=== PATIENT | male | born 1955 | race African-American/Black ===

== ENCOUNTER 2016-09-15 10:05 | Emergency (ER) | payer OTHER ==
[~2016-09-15] VITALS: Ht 162.6 cm; Wt 81.8 kg
[~2016-09-15 10:05] MED LIST: AMLO-511 PO; ASPI81 PO; ATOR20TA86 PO; BRIM15DR2 OD; CARI350 PO; CITA20TA9 PO; FOLI0.4T2 PO; HYDR25TA PO; ISOS10TA16 PO; LISI-662 PO; LORA2TAB2 PO; MELO-273 PO; METF500T4 PO; MULT-71 PO; PENT100C9 PO; SIMV-261 PO; TAMS0.4C32 PO; TRAVZOS OD
[2016-09-15] MEDS ORDERED: ALBUTEROL SULFATE 5 MG/ML 20 ML NEB SOLN [BULK] NEB ONE (10:15)
[2016-09-15] MEDS ORDERED: IPRATROPIUM BROMIDE 0.5 MG/2.5 ML NEB SOLUTION NEB ONE (10:15)
[2016-09-15 10:58] LABS: BASOPHILS # (AUTO) 0.02 K/uL (0.00-0.20); BASOPHILS % (AUTO) 0.4 % (0.0-2.0); EOSINOPHILS # (AUTO) 0.02 K/uL (0.00-0.70); EOSINOPHILS % (AUTO) 0.45 % (1.0-6.0); LYMPHOCYTES # (AUTO) 0.9 K/uL (1.0-4.8); LYMPHOCYTES % (AUTO) 20.3 % (22.0-44.0); MEAN CORPUSCULAR HEMOGLOBIN 24.2 pg (26.0-34.0); MEAN CORPUSCULAR VOLUME 78 fL (80-100); MONOCYTES # (AUTO) 0.8 K/uL (0.1-1.0); MONOCYTES % (AUTO) 17.9 % (2.0-9.0); NEUTROPHILS # (AUTO) 2.7 K/uL (1.8-7.7); PLATELET COUNT (AUTO) 235 K/uL (150-450); RED BLOOD CELL COUNT(AUTO) 5.77 MIL/uL (4.50-5.90); RED CELL DISTRIBUTION WIDTH 17.6 % (11.5-14.5); WHITE BLOOD COUNT (AUTO) 4.4 K/uL (4.5-11.0)
[2016-09-15 10:59] LABS: ANION GAP 6 mmol/L (8-16); CARBON DIOXIDE 34 mmol/L (22-29); CHLORIDE 90 mmol/L (98-107); GLOMERULAR FILTR. RATE CALC > 60 mL/min (>60); POTASSIUM 3.8 mmol/L (3.5-5.1); SODIUM SERUM 130 mmol/L (136-145); UREA NITROGEN, BLOOD 6 mg/dL (7-18)
[2016-09-15 11:06] LABS: ALANINE AMINOTRANSFERASE 63 U/L (12-78); ASPARTATE AMINOTRANSFERASE 48 U/L (15-37); BILIRUBIN,TOTAL 0.3 mg/dL (0.1-1.0); TOTAL PROTEIN, SERUM 8.2 g/dL (6.4-8.2)
[2016-09-15] MEDS ORDERED: SODIUM CHLORIDE 0.9% 1,000 ML IV ONE (13:15)
[2016-09-15] MEDS ORDERED: MethylPREDNISolone SOD SUCC 125 MG/2 ML VIAL IVP ONE (13:15)
[2016-09-15 15:10] VITALS: BP 141/75
== END 2016-09-15 15:18 | disposition home or self-care (01) ==
LOC: EMS 10:12
DX: J44.9 Chronic obstructive pulmonary disease, unspecified (principal); F41.9 Anxiety disorder, unspecified; E78.00 Pure hypercholesterolemia, unspecified; E11.9 Type 2 diabetes mellitus without complications; I10 Essential (primary) hypertension; F17.210 Nicotine dependence, cigarettes, uncomplicated; Z79.82 Long term (current) use of aspirin
CPT/HCPCS: 36415; 71020; 80053; 85025; 94640; 96361; 96374; 99285; J2930; J7030; J7611

== ENCOUNTER 2017-04-23 08:49 | Inpatient (IN) | payer OTHER ==
[~2017-04-23] VITALS: Ht 175.3 cm; Wt 79.5 kg
[~2017-04-23 08:49] MED LIST changes: +MELO-107 PO; -MELO-273 PO; -MULT-71 PO; +MULT1TAB70 PO
[2017-04-23] MEDS ORDERED: IPRATROPIUM BROMIDE 0.5 MG/2.5 ML NEB SOLUTION NEB ONE ×2 (09:00)
[2017-04-23] MEDS ORDERED: ALBUTEROL SULFATE 5 MG/ML 20 ML NEB SOLN [BULK] NEB ONE ×2 (09:00)
[2017-04-23] MEDS ORDERED: MethylPREDNISolone SOD SUCC 125 MG/2 ML VIAL IVP ONE (09:00)
[2017-04-23] MEDS ORDERED: LEVOFLOXACIN 750 MG/D5% WATER 150 ML IV ONE (09:00)
[2017-04-23 09:09] LABS: ABG A-A DIFF O2 425.5 mmHg (10-20.0); ABG BASE EXCESS 8.6 mmol/L (-2.0-3.0); ABG CARBOXYHEMOGLOBIN 3.7 % (0.0-1.5); ABG HCO3 29.5 mmol/L (22.0-26.0); ABG METHEMOGLOBIN 0.4 % (0.0-1.5); ABG OXYGEN CONTENT 20.4 mL/dL (15.0-23.0); ABG OXYGEN SATURATION 99.3 % (95.0-98.0); ABG OXYHEMOGLOBIN 95.2 % (94.0-100.0); ABG PCO2 80 mmHg (35-45); ABG PH 7.269 (7.35-7.450); ABG TOTAL HEMOGLOBIN 14.9 G/dL (12.0-18.0); O2 DEVICE,BLOOD GAS NON REBREATHER (ROOM AIR); PO2, ARTERIAL BG 207.7 mmHg (79.0-87.0); SITE, BLOOD GAS RT RADIAL; SOURCE, BLOOD GAS ARTERIAL; TEMPERATURE, FAHRENHEIT, BG 98.8 FAHREN (96.0-98.6)
[2017-04-23] MEDS ORDERED: 0.9% SODIUM CHLORIDE 15 ML NEB SOLUTION NEB ONE ×2 (09:16→11:22)
[2017-04-23 09:29] LABS: EOSINOPHILS % (AUTO) 0.3 % (1.0-6.0); HEMATOCRIT 46.4 % (41-53); LYMPHOCYTES # (AUTO) 0.7 K/uL (1.0-4.8); LYMPHOCYTES % (AUTO) 6.7 % (22.0-44.0); MEAN CORPUSCULAR HEMOGLOBIN 26.3 pg (26.0-34.0); MEAN CORPUSCULAR HGB CONC 32.4 G/dL (31.0-37.0); MEAN CORPUSCULAR VOLUME 81 fL (80-100); MONOCYTES # (AUTO) 1.9 K/uL (0.1-1.0); MONOCYTES % (AUTO) 19.8 % (2.0-9.0); NEUTROPHILS # (AUTO) 7.2 K/uL (1.8-7.7); NEUTROPHILS % (AUTO) 73.2 % (40.0-70.0); PLATELET COUNT (AUTO) 234 K/uL (150-450); RED BLOOD CELL COUNT(AUTO) 5.71 MIL/uL (4.50-5.90); RED CELL DISTRIBUTION WIDTH 19.9 % (11.5-14.5)
[2017-04-23 09:59] LABS: ANION GAP 9 mmol/L (8-16); CARBON DIOXIDE 36 mmol/L (22-29); CHLORIDE 83 mmol/L (98-107); CREATININE 1.25 mg/dL (0.60-1.30); GLOMERULAR FILTR. RATE CALC > 60 mL/min (>60); GLUCOSE,RANDOM 166 mg/dL (70-110); POTASSIUM 3.6 mmol/L (3.5-5.1); SODIUM SERUM 128 mmol/L (136-145); UREA NITROGEN, BLOOD 14 mg/dL (7-18)
[2017-04-23 10:16] LABS: B-TYPE NATRIURETIC PEPTIDE 40 pg/mL (0-100)
[2017-04-23 10:24] LABS: ALANINE AMINOTRANSFERASE 22 U/L (12-78); ALBUMIN 4.2 g/dL (3.4-5.0); ALKALINE PHOSPHATASE 57 U/L (46-116); ASPARTATE AMINOTRANSFERASE 23 U/L (15-37); BILIRUBIN,TOTAL 0.4 mg/dL (0.1-1.0); CREATINE KINASE MB 1.4 ng/mL (0-5); CREATINE KINASE, TOTAL 216 U/L (39-308); TOTAL PROTEIN, SERUM 8.4 g/dL (6.4-8.2)
[2017-04-23 10:55] LABS: APPEARANCE,URINE CLEAR (CLEAR); BILIRUBIN,URINE NEGATIVE (NEGATIVE); GLUCOSE, URINE (UA) NEGATIVE (NEGATIVE); KETONES,URINE NEGATIVE (NEGATIVE); LEUKOCYTE ESTERASE ,URINE NEGATIVE (NEGATIVE); NITRATE,URINE NEGATIVE (NEGATIVE); OCCULT BLOOD,URINE NEGATIVE (NEGATIVE); UROBILINOGEN,URINE 0.2 mg/dL (<=1.0)
[2017-04-23 10:58] LABS: PROTEIN,URINE NEGATIVE (NEGATIVE)
[2017-04-23] MEDS ORDERED: ACETAMINOPHEN 325 MG TABLET PO PRN (12:45)
[2017-04-23] MEDS ORDERED: ONDANSETRON HCL 4 MG/2 ML VIAL IVP PRN (12:45)
[2017-04-23] MEDS ORDERED: 0.9% SODIUM CHLORIDE 10 ML SYRINGE IVP PRN (12:45)
[2017-04-23 13:06] VITALS: BP 131/76
[2017-04-23] MEDS ORDERED: PNEUMOCOCCAL VACCINE POLYVALENT 0.5 ML VIAL [PPSV23] IM ONE (15:15)
[2017-04-23 15:26] VITALS: BP 108/73
[2017-04-23] MEDS: IPRATROPIUM BROMIDE 0.5 MG/2.5 ML NEB SOLUTION NEB SCH ×2 (16:11→19:00)
[2017-04-23] MEDS: ALBUTEROL SULFATE 2.5 MG/0.5 ML NEB SOLUTION NEB SCH ×2 (16:11→19:00)
[2017-04-23] MEDS: CARISOPRODOL 350 MG TABLET PO SCH ×2 (18:12→23:47)
[2017-04-23 19:40] VITALS: BP 124/80
[2017-04-23] MEDS: BRIMONIDINE TARTRATE 0.1% 5 ML OPHTHALMIC SOLUTION OD SCH (20:46)
[2017-04-23] MEDS: LORazepam 2 MG TABLET PO SCH (20:46)
[2017-04-23] MEDS: TRAVOPROST-Z 0.004% 2.5 ML OPHTHALMIC SOLUTION OD SCH (20:46)
[2017-04-23] MEDS: ISOSORBIDE DINITRATE 10 MG TABLET PO SCH (20:46)
[2017-04-23] MEDS: MethylPREDNISolone SOD SUCC 125 MG/2 ML VIAL IVP SCH ×2 (20:46→23:47)
[2017-04-23] MEDS: OXYGEN THERAPY IH SCH (20:54)
[2017-04-23] MEDS: BUDESONIDE 0.5 MG/2 ML NEB SOLUTION NEB SCH (21:00)
[2017-04-23 23:38] VITALS: BP 140/89
[2017-04-24] MEDS: IPRATROPIUM BROMIDE 0.5 MG/2.5 ML NEB SOLUTION NEB SCH ×7 (00:14→22:56)
[2017-04-24] MEDS: ALBUTEROL SULFATE 2.5 MG/0.5 ML NEB SOLUTION NEB SCH ×7 (00:14→22:56)
[2017-04-24] MEDS ORDERED: CARISOPRODOL 350 MG TABLET PO SCH (02:00)
[2017-04-24] MEDS: CefTRIAXone 1 GM/DEXTROSE 50 ML IV SCH (03:29)
[2017-04-24] MEDS: AZITHROMYCIN 500 MG/NS 250 ML IV SCH (03:29)
[2017-04-24 04:41] VITALS: BP 118/76
[2017-04-24] MEDS: CARISOPRODOL 350 MG TABLET PO SCH ×3 (05:21→17:30)
[2017-04-24] MEDS: MethylPREDNISolone SOD SUCC 125 MG/2 ML VIAL IVP SCH ×3 (05:21→17:29)
[2017-04-24] MEDS: MetFORMIN HCL 500 MG TABLET PO SCH ×2 (07:25→17:29)
[2017-04-24] MEDS: BRIMONIDINE TARTRATE 0.1% 5 ML OPHTHALMIC SOLUTION OD SCH ×3 (07:27→21:27)
[2017-04-24 07:28] VITALS: BP 139/82
[2017-04-24] MEDS: ASPIRIN 81 MG CHEWABLE TABLET PO SCH (07:29)
[2017-04-24] MEDS: LORazepam 2 MG TABLET PO SCH ×2 (07:29→21:27)
[2017-04-24] MEDS: CITALOPRAM HYDROBROMIDE 20 MG TABLET PO SCH (07:29)
[2017-04-24] MEDS: ATORVASTATIN CALCIUM 20 MG TABLET PO SCH (07:30)
[2017-04-24] MEDS: ISOSORBIDE DINITRATE 10 MG TABLET PO SCH ×2 (07:30→21:27)
[2017-04-24] MEDS: FOLIC ACID 0.4 MG TABLET PO SCH (07:30)
[2017-04-24] MEDS: TAMSULOSIN HCL 0.4 MG CAPSULE PO SCH (07:32)
[2017-04-24] MEDS: MELOXICAM 7.5 MG TABLET PO SCH (07:34)
[2017-04-24] MEDS: HYDROCHLOROTHIAZIDE 25 MG TABLET PO SCH (07:35)
[2017-04-24] MEDS: AmLODIPine BESYLATE 5 MG TABLET PO SCH (07:35)
[2017-04-24] MEDS: BUDESONIDE 0.5 MG/2 ML NEB SOLUTION NEB SCH ×2 (07:55→19:19)
[2017-04-24 08:24] LABS: INFLUENZA TYPE A POSITIVE FOR TYPE A (NEGATIVE); INFLUENZA TYPE B NEGATIVE FOR TYPE B (NEGATIVE)
[2017-04-24 08:45] LABS: EOSINOPHILS % (AUTO) 0.1 % (1.0-6.0); HEMATOCRIT 43.4 % (41-53); LYMPHOCYTES # (AUTO) 0.3 K/uL (1.0-4.8); LYMPHOCYTES % (AUTO) 4.7 % (22.0-44.0); MEAN CORPUSCULAR HEMOGLOBIN 26.6 pg (26.0-34.0); MEAN CORPUSCULAR HGB CONC 32.2 G/dL (31.0-37.0); MEAN CORPUSCULAR VOLUME 83 fL (80-100); MONOCYTES # (AUTO) 0.3 K/uL (0.1-1.0); MONOCYTES % (AUTO) 4.1 % (2.0-9.0); NEUTROPHILS # (AUTO) 6.2 K/uL (1.8-7.7); PLATELET COUNT (AUTO) 211 K/uL (150-450); RED BLOOD CELL COUNT(AUTO) 5.25 MIL/uL (4.50-5.90); RED CELL DISTRIBUTION WIDTH 19.5 % (11.5-14.5)
[2017-04-24 08:57] LABS: NEUTROPHILS % (AUTO) 91.1 % (40.0-70.0)
[2017-04-24] MEDS ORDERED: SIMVASTATIN 40 MG TABLET PO SCH (09:00)
[2017-04-24 09:01] LABS: ALANINE AMINOTRANSFERASE 21 U/L (12-78); ALBUMIN 3.4 g/dL (3.4-5.0); ALKALINE PHOSPHATASE 42 U/L (46-116); ANION GAP 6 mmol/L (8-16); ASPARTATE AMINOTRANSFERASE 17 U/L (15-37); BILIRUBIN,TOTAL 0.2 mg/dL (0.1-1.0); CALCIUM, TOTAL 8.5 mg/dL (8.8-10.5); CARBON DIOXIDE 37 mmol/L (22-29); CHLORIDE 91 mmol/L (98-107); CREATININE 1.08 mg/dL (0.60-1.30); GLOMERULAR FILTR. RATE CALC > 60 mL/min (>60); GLUCOSE,RANDOM 173 mg/dL (70-110); POTASSIUM 4.5 mmol/L (3.5-5.1); SODIUM SERUM 134 mmol/L (136-145); TOTAL PROTEIN, SERUM 7.5 g/dL (6.4-8.2); UREA NITROGEN, BLOOD 16 mg/dL (7-18)
[2017-04-24] MEDS: OXYGEN THERAPY IH SCH ×4 (11:26→21:28)
[2017-04-24 11:34] VITALS: BP 123/71
[2017-04-24] MEDS: LISINOPRIL 20 MG TABLET PO SCH (12:35)
[2017-04-24 15:13] VITALS: BP 134/70
[2017-04-24 16:38] LABS: GLUCOMETER DEV NAME(LOC) 5S 2N; GLUCOSE,POINT OF CARE 188 MG/DL (70-110)
[2017-04-24] MEDS: PENTOSAN POLYSULFATE SODIUM 100 MG PO SCH ×2 (17:29→21:27)
[2017-04-24 20:00] VITALS: BP 131/75
[2017-04-24] MEDS: TRAVOPROST-Z 0.004% 2.5 ML OPHTHALMIC SOLUTION OD SCH (21:27)
[2017-04-24 23:41] VITALS: BP 121/67
[2017-04-25] MEDS: MethylPREDNISolone SOD SUCC 125 MG/2 ML VIAL IVP SCH ×5 (00:09→23:53)
[2017-04-25] MEDS: CARISOPRODOL 350 MG TABLET PO SCH ×5 (00:10→23:53)
[2017-04-25] MEDS: CefTRIAXone 1 GM/DEXTROSE 50 ML IV SCH (01:12)
[2017-04-25] MEDS: AZITHROMYCIN 500 MG/NS 250 ML IV SCH (02:12)
[2017-04-25] MEDS: ALBUTEROL SULFATE 2.5 MG/0.5 ML NEB SOLUTION NEB SCH ×6 (03:29→23:00)
[2017-04-25] MEDS: IPRATROPIUM BROMIDE 0.5 MG/2.5 ML NEB SOLUTION NEB SCH ×5 (03:29→20:19)
[2017-04-25 04:53] VITALS: BP 131/75
[2017-04-25 07:17] VITALS: BP 150/62
[2017-04-25] MEDS: BUDESONIDE 0.5 MG/2 ML NEB SOLUTION NEB SCH ×2 (07:34→20:19)
[2017-04-25] MEDS: OXYGEN THERAPY IH SCH ×4 (09:11→20:33)
[2017-04-25] MEDS: ASPIRIN 81 MG CHEWABLE TABLET PO SCH (09:12)
[2017-04-25] MEDS: PENTOSAN POLYSULFATE SODIUM 100 MG PO SCH ×3 (09:12→20:26)
[2017-04-25] MEDS: BRIMONIDINE TARTRATE 0.1% 5 ML OPHTHALMIC SOLUTION OD SCH ×3 (09:12→20:24)
[2017-04-25] MEDS: HYDROCHLOROTHIAZIDE 25 MG TABLET PO SCH (09:13)
[2017-04-25] MEDS: CITALOPRAM HYDROBROMIDE 20 MG TABLET PO SCH (09:14)
[2017-04-25] MEDS: MetFORMIN HCL 500 MG TABLET PO SCH ×2 (09:14→17:52)
[2017-04-25] MEDS: FOLIC ACID 0.4 MG TABLET PO SCH (09:14)
[2017-04-25] MEDS: MELOXICAM 7.5 MG TABLET PO SCH (09:14)
[2017-04-25] MEDS: ISOSORBIDE DINITRATE 10 MG TABLET PO SCH ×2 (09:14→20:23)
[2017-04-25] MEDS: TAMSULOSIN HCL 0.4 MG CAPSULE PO SCH (09:14)
[2017-04-25] MEDS: LISINOPRIL 20 MG TABLET PO SCH (09:14)
[2017-04-25] MEDS: LORazepam 2 MG TABLET PO SCH ×2 (09:15→20:23)
[2017-04-25] MEDS: ATORVASTATIN CALCIUM 20 MG TABLET PO SCH (09:15)
[2017-04-25] MEDS: AmLODIPine BESYLATE 5 MG TABLET PO SCH (09:15)
[2017-04-25 11:06] VITALS: BP 142/66
[2017-04-25 15:08] VITALS: BP 149/76
[2017-04-25 19:22] LABS: GLUCOMETER DEV NAME(LOC) 5S 2N; GLUCOSE,POINT OF CARE 189 MG/DL (70-110)
[2017-04-25 19:27] VITALS: BP 143/77
[2017-04-25] MEDS: TRAVOPROST-Z 0.004% 2.5 ML OPHTHALMIC SOLUTION OD SCH (20:24)
[2017-04-26] VITALS (7 sets, daily range): BP systolic 127–153; BP diastolic 74–91
[2017-04-26] MEDS: IPRATROPIUM BROMIDE 0.5 MG/2.5 ML NEB SOLUTION NEB SCH ×7 (00:02→23:50)
[2017-04-26] MEDS: CefTRIAXone 1 GM/DEXTROSE 50 ML IV SCH (01:29)
[2017-04-26] MEDS: AZITHROMYCIN 500 MG/NS 250 ML IV SCH (02:29)
[2017-04-26] MEDS: ALBUTEROL SULFATE 2.5 MG/0.5 ML NEB SOLUTION NEB SCH ×6 (02:57→23:50)
[2017-04-26] MEDS: CARISOPRODOL 350 MG TABLET PO SCH ×4 (05:14→23:56)
[2017-04-26] MEDS: MethylPREDNISolone SOD SUCC 125 MG/2 ML VIAL IVP SCH ×2 (05:16→12:33)
[2017-04-26] MEDS: BUDESONIDE 0.5 MG/2 ML NEB SOLUTION NEB SCH ×2 (07:31→20:09)
[2017-04-26] MEDS: OXYGEN THERAPY IH SCH ×2 (07:52→20:35)
[2017-04-26] MEDS: TAMSULOSIN HCL 0.4 MG CAPSULE PO SCH (07:53)
[2017-04-26] MEDS: FOLIC ACID 0.4 MG TABLET PO SCH (07:53)
[2017-04-26] MEDS: ISOSORBIDE DINITRATE 10 MG TABLET PO SCH ×2 (07:53→20:34)
[2017-04-26] MEDS: BRIMONIDINE TARTRATE 0.1% 5 ML OPHTHALMIC SOLUTION OD SCH ×3 (07:53→20:34)
[2017-04-26] MEDS: LISINOPRIL 20 MG TABLET PO SCH (07:53)
[2017-04-26] MEDS: LORazepam 2 MG TABLET PO SCH ×2 (07:54→20:34)
[2017-04-26] MEDS: HYDROCHLOROTHIAZIDE 25 MG TABLET PO SCH (07:54)
[2017-04-26] MEDS: CITALOPRAM HYDROBROMIDE 20 MG TABLET PO SCH (07:54)
[2017-04-26] MEDS: MetFORMIN HCL 500 MG TABLET PO SCH ×2 (07:54→17:17)
[2017-04-26] MEDS: ASPIRIN 81 MG CHEWABLE TABLET PO SCH (07:54)
[2017-04-26] MEDS: ATORVASTATIN CALCIUM 20 MG TABLET PO SCH (07:54)
[2017-04-26] MEDS: MELOXICAM 7.5 MG TABLET PO SCH (07:54)
[2017-04-26] MEDS: PENTOSAN POLYSULFATE SODIUM 100 MG PO SCH ×3 (07:55→20:34)
[2017-04-26] MEDS: AmLODIPine BESYLATE 5 MG TABLET PO SCH (07:55)
[2017-04-26 08:03] LABS: EOSINOPHILS # (AUTO) 0.01 K/uL (0.00-0.70); EOSINOPHILS % (AUTO) 0.04 % (1.0-6.0); HEMATOCRIT 41.5 % (41-53); HEMOGLOBIN 12.8 g/dL (13.5-17.5); LYMPHOCYTES # (AUTO) 0.4 K/uL (1.0-4.8); LYMPHOCYTES % (AUTO) 2.8 % (22.0-44.0); MEAN CORPUSCULAR HEMOGLOBIN 26.2 pg (26.0-34.0); MEAN CORPUSCULAR HGB CONC 30.8 G/dL (31.0-37.0); MEAN CORPUSCULAR VOLUME 85 fL (80-100); MONOCYTES # (AUTO) 0.2 K/uL (0.1-1.0); MONOCYTES % (AUTO) 1.5 % (2.0-9.0); PLATELET COUNT (AUTO) 160 K/uL (150-450); RED BLOOD CELL COUNT(AUTO) 4.89 MIL/uL (4.50-5.90)
[2017-04-26 08:42] LABS: NEUTROPHILS % (AUTO) 95.6 % (40.0-70.0)
[2017-04-26 08:51] LABS: ALANINE AMINOTRANSFERASE 20 U/L (12-78); ALBUMIN 3.2 g/dL (3.4-5.0); ALKALINE PHOSPHATASE 39 U/L (46-116); ANION GAP -1 mmol/L (8-16); ASPARTATE AMINOTRANSFERASE 14 U/L (15-37); BILIRUBIN,TOTAL 0.3 mg/dL (0.1-1.0); CALCIUM, TOTAL 8.3 mg/dL (8.8-10.5); CHLORIDE 92 mmol/L (98-107); CREATININE 0.91 mg/dL (0.60-1.30); GLOMERULAR FILTR. RATE CALC > 60 mL/min (>60); GLUCOSE,RANDOM 156 mg/dL (70-110); POTASSIUM 5.1 mmol/L (3.5-5.1); SODIUM SERUM 133 mmol/L (136-145); TOTAL PROTEIN, SERUM 6.8 g/dL (6.4-8.2); UREA NITROGEN, BLOOD 18 mg/dL (7-18)
[2017-04-26 08:57] LABS: CARBON DIOXIDE 42 mmol/L (22-29)
[2017-04-26] MEDS: OSELTAMIVIR PHOSPHATE 75 MG CAPSULE PO SCH ×2 (15:23→20:34)
[2017-04-26 19:20] LABS: ABG A-A DIFF O2 30.3 mmHg (10-20.0); ABG CARBOXYHEMOGLOBIN 2.1 % (0.0-1.5); ABG HCO3 38.7 mmol/L (22.0-26.0); ABG METHEMOGLOBIN 0.4 % (0.0-1.5); ABG OXYGEN CONTENT 17.2 mL/dL (15.0-23.0); ABG OXYGEN SATURATION 93.3 % (95.0-98.0); ABG PH 7.339 (7.35-7.450); ABG TOTAL HEMOGLOBIN 13.4 G/dL (12.0-18.0); PO2, ARTERIAL BG 69.2 mmHg (79.0-87.0); SOURCE, BLOOD GAS ARTERIAL; TEMPERATURE, FAHRENHEIT, BG 98.4 FAHREN (96.0-98.6)
[2017-04-26 19:23] LABS: ABG PCO2 85 mmHg (35-45); O2 DEVICE,BLOOD GAS OXYMIZER (ROOM AIR); SITE, BLOOD GAS RT RADIAL
[2017-04-26] MEDS: TRAVOPROST-Z 0.004% 2.5 ML OPHTHALMIC SOLUTION OD SCH (20:34)
[2017-04-27] MEDS: CefTRIAXone 1 GM/DEXTROSE 50 ML IV SCH (01:53)
[2017-04-27] MEDS: AZITHROMYCIN 500 MG/NS 250 ML IV SCH (02:36)
[2017-04-27] MEDS: ALBUTEROL SULFATE 2.5 MG/0.5 ML NEB SOLUTION NEB SCH ×6 (03:00→23:16)
[2017-04-27] MEDS: IPRATROPIUM BROMIDE 0.5 MG/2.5 ML NEB SOLUTION NEB SCH ×6 (03:00→23:16)
[2017-04-27] MEDS: CARISOPRODOL 350 MG TABLET PO SCH ×4 (04:57→23:44)
[2017-04-27 04:59] VITALS: BP 153/94
[2017-04-27 07:34] LABS: ALANINE AMINOTRANSFERASE 20 U/L (12-78); ALKALINE PHOSPHATASE 41 U/L (46-116); ANION GAP 1 mmol/L (8-16); ASPARTATE AMINOTRANSFERASE 14 U/L (15-37); BILIRUBIN,TOTAL 0.3 mg/dL (0.1-1.0); CALCIUM, TOTAL 8.5 mg/dL (8.8-10.5); CHLORIDE 90 mmol/L (98-107); CREATININE 0.84 mg/dL (0.60-1.30); GLOMERULAR FILTR. RATE CALC > 60 mL/min (>60); GLUCOSE,RANDOM 97 mg/dL (70-110); POTASSIUM 4.2 mmol/L (3.5-5.1); SODIUM SERUM 133 mmol/L (136-145); TOTAL PROTEIN, SERUM 6.4 g/dL (6.4-8.2); UREA NITROGEN, BLOOD 16 mg/dL (7-18)
[2017-04-27 07:39] LABS: CARBON DIOXIDE 42 mmol/L (22-29)
[2017-04-27] MEDS: BUDESONIDE 0.5 MG/2 ML NEB SOLUTION NEB SCH ×2 (07:45→19:37)
[2017-04-27 07:48] LABS: BASOPHILS % (AUTO) 0.3 % (0.0-2.0); EOSINOPHILS % (AUTO) 0.1 % (1.0-6.0); HEMATOCRIT 39.4 % (41-53); HEMOGLOBIN 12.6 g/dL (13.5-17.5); LYMPHOCYTES # (AUTO) 1.4 K/uL (1.0-4.8); LYMPHOCYTES % (AUTO) 15.9 % (22.0-44.0); MEAN CORPUSCULAR HEMOGLOBIN 26.5 pg (26.0-34.0); MEAN CORPUSCULAR VOLUME 83 fL (80-100); MONOCYTES % (AUTO) 11.2 % (2.0-9.0); NEUTROPHILS # (AUTO) 6.3 K/uL (1.8-7.7); NEUTROPHILS % (AUTO) 72.5 % (40.0-70.0); PLATELET COUNT (AUTO) 161 K/uL (150-450); RED BLOOD CELL COUNT(AUTO) 4.74 MIL/uL (4.50-5.90)
[2017-04-27 08:02] VITALS: BP 164/95
[2017-04-27 09:04] VITALS: BP 149/82
[2017-04-27] MEDS: OSELTAMIVIR PHOSPHATE 75 MG CAPSULE PO SCH ×2 (09:10→20:13)
[2017-04-27] MEDS: TAMSULOSIN HCL 0.4 MG CAPSULE PO SCH (09:10)
[2017-04-27] MEDS: PredniSONE 20 MG TABLET PO SCH (09:10)
[2017-04-27] MEDS: ATORVASTATIN CALCIUM 20 MG TABLET PO SCH (09:11)
[2017-04-27] MEDS: LORazepam 2 MG TABLET PO SCH ×2 (09:11→20:13)
[2017-04-27] MEDS: LISINOPRIL 20 MG TABLET PO SCH (09:11)
[2017-04-27] MEDS: FOLIC ACID 0.4 MG TABLET PO SCH (09:11)
[2017-04-27] MEDS: ISOSORBIDE DINITRATE 10 MG TABLET PO SCH ×2 (09:11→20:13)
[2017-04-27] MEDS: MetFORMIN HCL 500 MG TABLET PO SCH ×2 (09:11→17:01)
[2017-04-27] MEDS: HYDROCHLOROTHIAZIDE 25 MG TABLET PO SCH (09:12)
[2017-04-27] MEDS: AmLODIPine BESYLATE 5 MG TABLET PO SCH (09:12)
[2017-04-27] MEDS: CITALOPRAM HYDROBROMIDE 20 MG TABLET PO SCH (09:12)
[2017-04-27] MEDS: ASPIRIN 81 MG CHEWABLE TABLET PO SCH (09:12)
[2017-04-27] MEDS: MELOXICAM 7.5 MG TABLET PO SCH (09:12)
[2017-04-27] MEDS: BRIMONIDINE TARTRATE 0.1% 5 ML OPHTHALMIC SOLUTION OD SCH ×3 (09:13→20:13)
[2017-04-27] MEDS: OXYGEN THERAPY IH SCH ×2 (09:22→19:36)
[2017-04-27 11:35] VITALS: BP 138/81
[2017-04-27] MEDS: PENTOSAN POLYSULFATE SODIUM 100 MG PO SCH ×3 (12:23→20:13)
[2017-04-27 15:39] VITALS: BP 129/62
[2017-04-27 19:34] VITALS: BP 159/95
[2017-04-27] MEDS: TRAVOPROST-Z 0.004% 2.5 ML OPHTHALMIC SOLUTION OD SCH (20:13)
[2017-04-27] MEDS ORDERED: SODIUM CHLORIDE 0.9% 250 ML IV ONE (23:41)
[2017-04-28 00:10] VITALS: BP 147/90
[2017-04-28] MEDS: CefTRIAXone 1 GM/DEXTROSE 50 ML IV SCH (02:12)
[2017-04-28] MEDS: IPRATROPIUM BROMIDE 0.5 MG/2.5 ML NEB SOLUTION NEB SCH ×4 (03:04→14:56)
[2017-04-28] MEDS: ALBUTEROL SULFATE 2.5 MG/0.5 ML NEB SOLUTION NEB SCH ×4 (03:04→14:56)
[2017-04-28] MEDS: AZITHROMYCIN 500 MG/NS 250 ML IV SCH (03:06)
[2017-04-28 04:55] VITALS: BP 152/92
[2017-04-28] MEDS: CARISOPRODOL 350 MG TABLET PO SCH ×3 (05:56→18:23)
[2017-04-28 07:28] VITALS: BP 144/95
[2017-04-28 07:30] LABS: BASOPHILS # (AUTO) 0.02 K/uL (0.00-0.20); BASOPHILS % (AUTO) 0.2 % (0.0-2.0); EOSINOPHILS # (AUTO) 0.03 K/uL (0.00-0.70); EOSINOPHILS % (AUTO) 0.39 % (1.0-6.0); HEMATOCRIT 42.5 % (41-53); HEMOGLOBIN 13.2 g/dL (13.5-17.5); LYMPHOCYTES % (AUTO) 29.8 % (22.0-44.0); MEAN CORPUSCULAR HGB CONC 31.1 G/dL (31.0-37.0); MEAN CORPUSCULAR VOLUME 83 fL (80-100); MONOCYTES % (AUTO) 14.6 % (2.0-9.0); NEUTROPHILS # (AUTO) 3.8 K/uL (1.8-7.7); PLATELET COUNT (AUTO) 152 K/uL (150-450); RED BLOOD CELL COUNT(AUTO) 5.09 MIL/uL (4.50-5.90); RED CELL DISTRIBUTION WIDTH 18.6 % (11.5-14.5)
[2017-04-28] MEDS: BUDESONIDE 0.5 MG/2 ML NEB SOLUTION NEB SCH (07:35)
[2017-04-28 08:00] LABS: ALANINE AMINOTRANSFERASE 24 U/L (12-78); ALBUMIN 3.2 g/dL (3.4-5.0); ALKALINE PHOSPHATASE 49 U/L (46-116); ANION GAP 3 mmol/L (8-16); ASPARTATE AMINOTRANSFERASE 16 U/L (15-37); BILIRUBIN,TOTAL 0.4 mg/dL (0.1-1.0); CALCIUM, TOTAL 8.7 mg/dL (8.8-10.5); CHLORIDE 87 mmol/L (98-107); CREATININE 0.87 mg/dL (0.60-1.30); GLOMERULAR FILTR. RATE CALC > 60 mL/min (>60); GLUCOSE,RANDOM 96 mg/dL (70-110); POTASSIUM 3.8 mmol/L (3.5-5.1); SODIUM SERUM 133 mmol/L (136-145); TOTAL PROTEIN, SERUM 6.9 g/dL (6.4-8.2); UREA NITROGEN, BLOOD 16 mg/dL (7-18)
[2017-04-28 08:10] LABS: CARBON DIOXIDE 43 mmol/L (22-29)
[2017-04-28] MEDS: MetFORMIN HCL 500 MG TABLET PO SCH ×2 (08:56→18:23)
[2017-04-28] MEDS: OXYGEN THERAPY IH SCH (08:56)
[2017-04-28] MEDS: CITALOPRAM HYDROBROMIDE 20 MG TABLET PO SCH (08:57)
[2017-04-28] MEDS: ASPIRIN 81 MG CHEWABLE TABLET PO SCH (08:57)
[2017-04-28] MEDS: BRIMONIDINE TARTRATE 0.1% 5 ML OPHTHALMIC SOLUTION OD SCH ×2 (08:57→16:27)
[2017-04-28] MEDS: LORazepam 2 MG TABLET PO SCH (08:57)
[2017-04-28] MEDS: PENTOSAN POLYSULFATE SODIUM 100 MG PO SCH ×2 (08:58→16:28)
[2017-04-28] MEDS: FOLIC ACID 0.4 MG TABLET PO SCH (08:58)
[2017-04-28] MEDS: PredniSONE 20 MG TABLET PO SCH (08:58)
[2017-04-28] MEDS: TAMSULOSIN HCL 0.4 MG CAPSULE PO SCH (08:59)
[2017-04-28] MEDS: ISOSORBIDE DINITRATE 10 MG TABLET PO SCH (08:59)
[2017-04-28] MEDS: ATORVASTATIN CALCIUM 20 MG TABLET PO SCH (08:59)
[2017-04-28] MEDS: OSELTAMIVIR PHOSPHATE 75 MG CAPSULE PO SCH (09:00)
[2017-04-28] MEDS: MELOXICAM 7.5 MG TABLET PO SCH (09:00)
[2017-04-28] MEDS: AmLODIPine BESYLATE 5 MG TABLET PO SCH (09:00)
[2017-04-28] MEDS: LISINOPRIL 20 MG TABLET PO SCH (09:01)
[2017-04-28] MEDS: HYDROCHLOROTHIAZIDE 25 MG TABLET PO SCH (09:01)
[2017-04-28 11:07] VITALS: BP 116/84
[2017-04-28] MEDS ORDERED: PRED20 PO (14:06)
[2017-04-28] MEDS ORDERED: OSEL75 PO (14:07)
[2017-04-28] MEDS ORDERED: AZIT250T9 PO (14:07)
[2017-04-28 15:40] VITALS: BP 121/84
== END 2017-04-28 18:50 | disposition home or self-care (01) | DRG 140 ==
LOC: EMS 08:54 → 5S 12:02
PROVIDERS: ADMIT Internal Medicine; ATTEND Internal Medicine
PROC: 5A09357 Assistance with Respiratory Ventilation, Less than 24 Consecutive Hours, Continuous Positive Airway Pressure (ICD-10-PCS; principal; 2017-04-23)
DX: J44.1 Chronic obstructive pulmonary disease with (acute) exacerbation (principal); J96.01 Acute respiratory failure with hypoxia; J96.02 Acute respiratory failure with hypercapnia; E11.9 Type 2 diabetes mellitus without complications; I10 Essential (primary) hypertension; E78.5 Hyperlipidemia, unspecified; E78.00 Pure hypercholesterolemia, unspecified; F41.9 Anxiety disorder, unspecified; F17.210 Nicotine dependence, cigarettes, uncomplicated; E87.1 Hypo-osmolality and hyponatremia; E87.2 Acidosis; J40 Bronchitis, not specified as acute or chronic; Z79.899 Other long term (current) drug therapy; Z79.82 Long term (current) use of aspirin; Z79.84 Long term (current) use of oral hypoglycemic drugs; Z83.3 Family history of diabetes mellitus; Z82.49 Family history of ischemic heart disease and other diseases of the circulatory system
CPT/HCPCS: 71250; 82805; 82962; 87015; 87040; 87804; 90471; 93005; 94640; 94644; 94660; 96365; 96366; 96374; 99291; J0456; J0696; J1956; J2930; J7050

== ENCOUNTER 2018-05-03 07:33 | Emergency (ER) | payer OTHER ==
[~2018-05-03] VITALS: Ht 162.6 cm; Wt 75.5 kg
[~2018-05-03 07:33] MED LIST changes: +AZIT250T9 PO; +CITA-106 PO; -CITA20TA9 PO; +METF-444 PO; -METF500T4 PO; +OSEL75 PO; +PRED20 PO; -SIMV-261 PO
[2018-05-03 07:49] LABS: GLUCOSE,POINT OF CARE 107 MG/DL (70-110)
[2018-05-03] MEDS ORDERED: PENT100C9 PO (08:06)
[2018-05-03] MEDS ORDERED: KETOROLAC TROMETHAMINE 60 MG/2 ML VIAL IM ONE (09:00)
[2018-05-03] MEDS ORDERED: ACETAMINOPHEN 500 MG TABLET PO ONE (09:00)
[2018-05-03 11:11] VITALS: BP 145/89
== END 2018-05-03 11:12 | disposition home or self-care (01) ==
LOC: EMS 07:34
DX: S76.012A Strain of muscle, fascia and tendon of left hip, initial encounter (principal); I10 Essential (primary) hypertension; E11.9 Type 2 diabetes mellitus without complications; E78.00 Pure hypercholesterolemia, unspecified; J44.9 Chronic obstructive pulmonary disease, unspecified; F41.9 Anxiety disorder, unspecified; F17.210 Nicotine dependence, cigarettes, uncomplicated; Z79.84 Long term (current) use of oral hypoglycemic drugs; Z79.82 Long term (current) use of aspirin; W07.XXXA Fall from chair, initial encounter; Y93.89 Activity, other specified; Y92.89 Other specified places as the place of occurrence of the external cause; Y99.8 Other external cause status
CPT/HCPCS: 82962; 96372; 99283; 99406; J1885

== ENCOUNTER 2018-10-02 16:17 | Emergency (ER) | payer OTHER ==
[~2018-10-02] VITALS: Ht 162.6 cm; Wt 77.3 kg
[~2018-10-02 16:17] MED LIST changes: -AZIT250T9 PO; -HYDR25TA PO
[2018-10-02 18:44] VITALS: BP 140/87
[2018-10-03 19:59] LABS: GLUCOSE,POINT OF CARE 87 MG/DL (70-110)
== END 2018-10-02 18:57 | disposition home or self-care (01) ==
LOC: EMS 16:22
DX: T83.091A Other mechanical complication of indwelling urethral catheter, initial encounter (principal); I10 Essential (primary) hypertension; E78.00 Pure hypercholesterolemia, unspecified; E11.9 Type 2 diabetes mellitus without complications; J44.9 Chronic obstructive pulmonary disease, unspecified; F41.9 Anxiety disorder, unspecified; Z79.82 Long term (current) use of aspirin; Z79.899 Other long term (current) drug therapy